=== PATIENT | male | born 1950 | race Caucasian/White ===

== ENCOUNTER 2017-06-04 12:31 | Outpatient (CLI) | payer MEDICARE, BC ==
[~2017-06-04 12:31] MED LIST: Gadobenate Dimeglumine 529 MG/1 ML (20ML VIAL) ONE
== END 2017-06-04 12:32 | disposition home or self-care (01) ==
LOC: BICMRI 12:31
PROVIDERS: ATTEND Student in an Organized Health Care Education/Training Program
DX: H02.403 Unspecified ptosis of bilateral eyelids (principal); H55.89 Other irregular eye movements; H05.829 Myopathy of extraocular muscles, unspecified orbit; R46.4 Slowness and poor responsiveness; W19.XXXA Unspecified fall, initial encounter
CPT/HCPCS: 70553; 82164; 82550; 82565; 84443; 85025; 86038; 86225; 86592; A9579

== ENCOUNTER 2018-01-11 08:48 | Outpatient (CLI) | payer MEDICARE, BC ==
--- NOTE | 2018-01-12 13:31 | RAD ---
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 Chronic cough. Dysphagia unspecified. FINDINGS/IMPRESSION: A modified barium swallow was performed by the speech therapist. A video was performed. Penetration w as seen with thin liquids and nectar-thick liquids. No aspiration was seen during the examination. Pl ease see dedicated speech therapy report for specific findings and recommendations. POS: [facility]
== END 2018-01-11 08:49 | disposition home or self-care (01) ==
PROVIDERS: ATTEND Otolaryngology Plastic Surgery within the Head & Neck
DX: I69.191 Dysphagia following nontraumatic intracerebral hemorrhage (principal); I69.891 Dysphagia following other cerebrovascular disease; R13.10 Dysphagia, unspecified
CPT/HCPCS: 74230; G8996-GN-CL; G8997-GN-CK